=== PATIENT | female | born 1970 | race Caucasian/White ===

== ENCOUNTER 2016-07-09 11:57 | Inpatient (IN) | payer OTHER ==
[~2016-07-09] VITALS: Ht 160 cm; Wt 74.8 kg
[~2016-07-09 11:57] MED LIST: ATARAX,VISTARIL50 MG PO; CARAFATE1 G1 PO; CARBAMAZEPINE100 M1 PO; CARBIDOPA/LEVOD1 TA1 PO; CIPROFLOXACIN500 M4 PO; CLONAZEPAM1 MG PO; CYCLOBENZAPRINE5 M3 PO; HYDROMORPHONE PO; METOCLOPRAMIDE5 MG PO; NEXIUM 24HR20 MG PO; PREVACID30 M3 PO; PROMETHAZINE25 M1 PO; PROZAC20 MG PO; ROXICODONE15 MG PO; SYMBICORT1 AE1 INH; VENTOLIN H0.09 MG/AC INH; Zofran4 MG PO
[2016-07-09 12:04] VITALS: BP 94/65
[2016-07-09 14:27] VITALS: BP 122/69
[2016-07-09] MEDS ORDERED: REMERON30 M1 PO (14:45)
[2016-07-09] MEDS ORDERED: REGLAN5 MG PO (14:46)
[2016-07-09] MEDS ORDERED: Zofran4 MG PO (14:47)
[2016-07-09 15:13] LABS: BILIRUBIN 1+ (NEGATIVE); BLOOD NEGATIVE (NEGATIVE); CLARITY SL CLOUDY (CLEAR); COLOR YELLOW (YELLOW); GLUCOSE NEGATIVE (NEGATIVE); KETONE TRACE (NEGATIVE); LEUKO ESTERASE NEGATIVE (NEGATIVE); NITRITE NEGATIVE (NEGATIVE); PH 6.5 (5.0-9.0); PROTEIN TRACE (NEGATIVE)
[2016-07-09 15:23] LABS: BACTERIA 2+; MUCOUS TRACE; RBC 0-2 rbc/hpf (0-2); URINE REFLEX COMMENT YES (NO)
[2016-07-09 15:26] LABS: BASO % 0.4 % (0.0-1.0); EOS % 0.4 % (1.0-4.0); HEMATOCRIT 41.6 % (37.0-47.0); HEMOGLOBIN 14.2 g/dl (12.0-16.0); LYMPH # 2.2 10*3/uL (1.3-4.4); LYMPH % 24.1 % (27.0-41.0); MEAN CELL VOLUME 96.3 fl (81.0-99.0); MEAN CORPUSCULAR HGB 32.9 pg (27.0-31.0); MEAN CORPUSCULAR HGB CONC 34.1 g/dl (33.0-37.0); MEAN PLATELET VOLUME 9.9 fl (9.6-12.3); MONO # 0.4 10*3/uL (0.1-1.0); MONO % 4.2 % (3.0-9.0); NEUT # 6.5 10*3/uL (2.3-7.9); NEUT % 70.7 % (47.0-73.0); PLATELET COUNT AUTOMATED 292 10*3/uL (130-400); RED BLOOD COUNT 4.32 10*6/uL (4.10-5.10); RED CELL DISTRI WIDTH 13.5 % (0-14.5); WHITE BLOOD COUNT 9.2 10*3/uL (4.8-10.8)
[2016-07-09 15:36] LABS: URINE AMPHETAMINES < 1000 (1000ng/ml); URINE BARBITURATES < 200 (200ng/ml); URINE COCAINE < 300 (300ng/ml)
[2016-07-09 15:38] LABS: PROTHROMBIN TIME 10.6 SECONDS (9.0-12.4)
[2016-07-09 15:50] LABS: ALBUMIN 3.6 gm/dl (3.1-4.5); ALKALINE PHOSPHATASE 92 U/L (45-117); BILIRUBIN, TOTAL 0.4 mg/dl (0.2-1.0); BUN 8 mg/dl (7-24); CARBON DIOXIDE 27 mmol/L (21-32); CHLORIDE 106 mmol/L (98-107); EST GLOM FILT AFRICAN AMERICAN > 60 ml/min; GLUCOSE 86 mg/dL (65-99); POTASSIUM 3.8 mmol/L (3.5-5.1); SGOT/AST 11 IU/L (3-35); SGPT/ALT 15 U/L (12-78); SODIUM 142 mmol/L (136-145); TOTAL PROTEIN 7.5 gm/dL (6.4-8.2)
[2016-07-09 16:00] VITALS: BP 133/82
[2016-07-09 20:00] VITALS: BP 91/54
[2016-07-10] VITALS: BP 106/66
[2016-07-10 08:00] VITALS: BP 98/54
== END 2016-07-10 09:19 | disposition left against medical advice (07) | DRG 894 ==
LOC: ED 11:57 → EDHOLD 13:07 → 4E 13:07
PROVIDERS: Family Medicine
DX: F11.23 Opioid dependence with withdrawal (principal); R82.2 Biliuria; F50.2 Bulimia nervosa; K31.84 Gastroparesis; F17.200 Nicotine dependence, unspecified, uncomplicated; F41.9 Anxiety disorder, unspecified; R82.71 Bacteriuria; F41.0 Panic disorder [episodic paroxysmal anxiety]; M79.7 Fibromyalgia; F42.9 Obsessive-compulsive disorder, unspecified; Z88.6 Allergy status to analgesic agent; Z88.5 Allergy status to narcotic agent; Z88.8 Allergy status to other drugs, medicaments and biological substances; Z88.2 Allergy status to sulfonamides; Z79.899 Other long term (current) drug therapy; Z80.8 Family history of malignant neoplasm of other organs or systems